=== PATIENT | male | born 1995 | race African-American/Black ===

== ENCOUNTER 2017-03-26 11:09 | Emergency (ER) | payer SELFPAY ==
[2017-03-26 11:31] VITALS: RESP 18; TEMP 98.1
--- NOTE | 2017-03-26 12:12 | C.PDOC ---
History Of Present Illness 21 y/o male presents to the ED with complains of cut to right ring finger sustained several days ago. Pt has since developed rash on same finger and has spread to other nails. Denies fever, numbness, weakness of fingers or any other complaints. No recent travel. Time Seen by Provider: 03/26/17 11:25 Chief Complaint (Nursing): Abnormal Skin Integrity History Per: Patient History/Exam Limitations: no limitations Onset/Duration Of Symptoms: Days Current Symptoms Are (Timing): Still Present Severity: Mild Recent travel outside of the [place]: No Past Medical History Reviewed: Historical Data, Nursing Documentation, Vital Signs Vital Signs: Last Vital Signs Temp 98.1 F 03/26/17 11:17 Pulse 85 03/26/17 12:20 Resp 18 03/26/17 12:20 BP 115/78 03/26/17 12:20 Pulse Ox 96 03/26/17 13:52 Family History: States: Unknown Family Hx - Social History Hx Alcohol Use: No Hx Substance Use: No - Immunization History Hx Tetanus Toxoid Vaccination: No Hx Influenza Vaccination: No Hx Pneumococcal Vaccination: No Review Of Systems Except As Marked, All Systems Reviewed And Found Negative. Constitutional: Negative for: Fever Musculoskeletal: Positive for: Other (cut on right ring finger, rash on multiple fingers) Neurological: Negative for: Weakness, Numbness Physical Exam - Physical Exam Appears: Non-toxic, No Acute Distress Skin: Warm, Dry, Rash (erythematous papules along nail margins bilateral thumb, index and middle fingers; right index finger with healed wound on nail margin) Head: Atraumatic, Normacephalic Eye(s): bilateral: Normal Inspection Oral Mucosa: Moist Neck: Normal ROM Extremity: Normal ROM, Capillary Refill (<2 seconds), No Deformity, No Swelling Neurological/Psych: Oriented x3, Normal Motor, Normal Sensation ED Course And Treatment O2 Sat by Pulse Oximetry: 96 (room air) Pulse Ox Interpretation: Normal Disposition - Disposition Referrals: [facility] [Outside] Disposition: HOME/ ROUTINE Disposition Time: 12:08 Condition: GOOD Additional Instructions: Wash the area twice a day and apply cream. Do not cut or bite the nails. Return if worsened. 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 - Scribe Statement The provider has reviewed the documentation as recorded by the Scribe Andrew Marcelino All medical record entries made by the Scribe were at my direction and personally dictated by me. I have reviewed the chart and agree that the record accurately reflects my personal performance of the history, physical exam, medical decision making, and the department course for this patient. I have also personally directed, reviewed, and agree with the discharge instructions and disposition.
[2017-03-26 12:21] VITALS: BP 115/78; PULSE 85
[2017-03-26 13:47] VITALS: O2SAT 96
== END 2017-03-26 12:21 | disposition home or self-care (01) ==
LOC: C.ER 11:09
DX: L03.011 Cellulitis of right finger (principal)